=== PATIENT | female | born 1980 | race African-American/Black ===

== ENCOUNTER 2024-09-30 01:26 | Emergency (ER) | payer BC ==
[2024-09-30] MEDS ORDERED: Naloxone 0.4 MG/ML SDV IVPUSH PRN (02:06)
[2024-09-30] MEDS: HYDROmorphone 1 MG/ML Syringe IVPUSH ONE (02:09)
[2024-09-30] MEDS: HYDROmorphone 1 MG/ML Syringe IM ONE ×2 (02:13→03:03)
[2024-09-30] MEDS: oxyCODONE 5 MG Tab PO ONE (03:03)
== END 2024-09-30 03:22 | disposition home or self-care (01) ==
LOC: MW.ED 01:26
DX: S82.301A Unspecified fracture of lower end of right tibia, initial encounter for closed fracture (principal); S82.831A Other fracture of upper and lower end of right fibula, initial encounter for closed fracture; Z79.899 Other long term (current) drug therapy; Z79.4 Long term (current) use of insulin; X50.1XXA Overexertion from prolonged static or awkward postures, initial encounter
CPT/HCPCS: 29515; 73590; 73610; 96372; 99283; A9270; J1171

== ENCOUNTER 2024-10-04 06:34 | Day surgery (SDC) | payer BC ==
[2024-10-04] MEDS ORDERED: Lidocaine 2% 5 ML SDV ONE (07:08)
[2024-10-04] MEDS ORDERED: dexmedeTOMIDine HCl 200 MCG/2 ML SDV ONE (07:08)
[2024-10-04] MEDS ORDERED: Sodium Chloride 0.9% 20 ML ONE (07:08)
[2024-10-04] MEDS ORDERED: Ropivacaine 0.5% 5 MG/ML 30 ML SDV ONE (07:09)
[2024-10-04] MEDS ORDERED: Bupivacaine 0.25% 30 ML SDV ONE (07:12)
[2024-10-04] MEDS ORDERED: Propofol 200 MG/20 ML SDV ONE ×2 (07:17→10:02)
[2024-10-04] MEDS ORDERED: fentaNYL 100 MCG/2 ML SDV ONE (07:18)
[2024-10-04] MEDS: Lactated Ringers 1,000 ML IV SCH (07:25)
[2024-10-04] MEDS ORDERED: propofoL 500 MG/50 ML 50 ML ONE (07:54)
[2024-10-04] MEDS ORDERED: Midazolam 1 MG/ML 2 ML SDV ONE (07:59)
[2024-10-04] MEDS ORDERED: Morphine 2 MG/ML SYRINGE IVPUSH PRN (08:00)
[2024-10-04] MEDS ORDERED: HYDROmorphone 1 MG/ML Syringe IVPUSH PRN (08:00)
[2024-10-04] MEDS ORDERED: Albuterol 0.083% 2.5 MG/3 ML Neb Soln NEB PRN (08:00)
[2024-10-04] MEDS ORDERED: ceFAZolin 2 GM in Sodium Chloride 0.9% 50 ML IV ONE (08:00)
[2024-10-04] MEDS ORDERED: Phenylephrine HCl In 0.9% NaCl 1 MG/10 ML Syringe IVPUSH PRN (08:00)
[2024-10-04] MEDS ORDERED: Ondansetron 4 MG/2 ML SDV IVPUSH PRN (08:00)
[2024-10-04] MEDS ORDERED: Naloxone 0.4 MG/ML SDV IVPUSH PRN (08:00)
[2024-10-04] MEDS ORDERED: Metoclopramide 10 MG/2 ML SDV IVPUSH PRN (08:00)
[2024-10-04] MEDS ORDERED: fentaNYL 50 MCG/ML SDV IVPUSH PRN (08:00)
[2024-10-04] MEDS ORDERED: Ketamine HCL/NACL, ISO-OSM 50 MG/5 ML Syringe ONE (08:16)
[2024-10-04] MEDS ORDERED: ceFAZolin 2 GM Vial ONE (08:16)
== END 2024-10-04 15:15 | disposition home or self-care (01) ==
LOC: MW.SDS 06:34
PROVIDERS: ATTEND Orthopaedic Surgery
DX: S82.831A Other fracture of upper and lower end of right fibula, initial encounter for closed fracture (principal); S82.291A Other fracture of shaft of right tibia, initial encounter for closed fracture; K21.9 Gastro-esophageal reflux disease without esophagitis; E10.9 Type 1 diabetes mellitus without complications; F32.A Depression, unspecified; Z79.899 Other long term (current) drug therapy; X58.XXXA Exposure to other specified factors, initial encounter
CPT/HCPCS: 27758; 64447; 76000; J0665; J0690; J2003; J2250; J2704; J2795; J3010; J7120; C1776; J3490